=== PATIENT | female | born 1935 | race African-American/Black ===

== ENCOUNTER 2016-08-12 06:19 | Inpatient (IN) | payer MEDICARE, MEDICAID ==
[2016-08-10 13:39] VITALS: BMI 28.2
[2016-08-10 14:12] VITALS: BP_SYST 120; RESP 20
[2016-08-12] VITALS (21 sets, daily range): BP systolic 68–157; RESP 10–21; TEMP 97.2–97.8
[~2016-08-12] VITALS: Ht 157.5 cm; Wt 69.5 kg
[~2016-08-12 06:19] MED LIST: GLYCOPYRROLATE 0.2 MG/ML VIAL IV ONE; LIDOCAINE 1% BUFFERED 1 ML SYR INTRADERM PRN; MIDAZOLAM 2 MG/2 ML INJ IV ONE; NEB-ALBUTEROL 2.5 MG/3 ML INH ONE; SODIUM CHLORIDE 0.9% 1,000 ML IV SCH
[2016-08-12] MEDS ORDERED: CEFAZOLIN 2,000 MG in SODIUM CHLORIDE 0.9% 100 ML IV ONE (06:55)
[2016-08-12] MEDS ORDERED: MEPERIDINE 25 MG/ML IV PRN (08:20)
[2016-08-12] MEDS ORDERED: MORPHINE 4 MG/ML SYR IV PRN (08:20)
[2016-08-12] MEDS ORDERED: ONDANSETRON 4 MG VIAL IV PRN ×2 (08:20→09:05)
[2016-08-12] MEDS ORDERED: OXYCODONE 5 MG TAB PO PRN (08:20)
[2016-08-12] MEDS ORDERED: SALINE FLUSH 10 ML FLUSH PRN (09:05)
[2016-08-12] MEDS ORDERED: SODIUM CHLORIDE 0.9% 1,000 ML IV SCH ×2 (09:05→12:55)
[2016-08-12] MEDS ORDERED: NEOSTIGMINE 10 MG/10 ML VIAL IV ONE (10:13)
[2016-08-12] MEDS ORDERED: FENTANYL 100 MCG/2 ML AMP IV ONE (10:13)
[2016-08-12] MEDS ORDERED: PROPOFOL 20 ML VIAL IV ONE (10:13)
[2016-08-12] MEDS ORDERED: ONDANSETRON 4 MG VIAL IV PUSH ONE (10:13)
[2016-08-12] MEDS ORDERED: GLYCOPYRROLATE 0.2 MG/ML VIAL IV ONE (10:13)
[2016-08-12] MEDS ORDERED: ROCURONIUM 50 MG VIAL IV ONE (10:13)
[2016-08-12] MEDS: DILAUDID 1 MG/ML AMP IV PRN ×3 (10:59→20:16)
[2016-08-12] MEDS ORDERED: GLUCAGON 1 MG VIAL IM PRN (11:20)
[2016-08-12] MEDS ORDERED: DEXTROSE 50% SYRINGE 50 ML IV PRN (11:20)
[2016-08-12] MEDS ORDERED: BACITRACIN 50,000 UNITS INJ IRRIG ONE (14:06)
[2016-08-12] MEDS: CEFAZOLIN 2,000 MG in SODIUM CHLORIDE 0.9% 100 ML IV SCH ×2 (15:21→23:42)
[2016-08-12] MEDS: Senna/DSS 50/8.6 MG TAB PO SCH (20:14)
[2016-08-12] MEDS: SALINE FLUSH 10 ML FLUSH SCH (20:15)
[2016-08-12] MEDS: FAMOTIDINE 20 MG INJ IV SCH (20:15)
[2016-08-12] MEDS: OXYCODONE 5 MG TAB PO PRN (20:40)
[2016-08-13] VITALS (50 sets, daily range): BP systolic 82–133; RESP 7–23; TEMP 97.4–99
[2016-08-13] MEDS: OXYCODONE 5 MG TAB PO PRN ×2 (01:09→20:11)
[2016-08-13] MEDS: DILAUDID 1 MG/ML AMP IV PRN ×3 (01:10→14:26)
[2016-08-13] MEDS ORDERED: METOPROLOL 5 MG/5 ML VIAL IV ONE (05:05)
[2016-08-13] MEDS: SODIUM CHLORIDE 0.9% FLUSH BAG 500 ML IV SCH (05:06)
[2016-08-13] MEDS ORDERED: CARDIZEM 1 MG/ML DRIP 125 ML IV SCH (05:25)
[2016-08-13] MEDS ORDERED: DILTIAZEM 125 MG in DEXTROSE 125 ML IV PUSH ONE (05:25)
[2016-08-13] MEDS: CEFAZOLIN 2,000 MG in SODIUM CHLORIDE 0.9% 100 ML IV SCH (06:51)
[2016-08-13] MEDS: SALINE FLUSH 10 ML FLUSH SCH ×2 (08:12→20:02)
[2016-08-13] MEDS: FAMOTIDINE 20 MG INJ IV SCH ×2 (08:13→20:01)
[2016-08-13] MEDS: BISACODYL 10 MG SUPP RECTAL SCH ×2 (09:00→15:45)
[2016-08-13] MEDS: Carvedilol 3.125 MG TAB PO SCH ×2 (12:45→20:02)
[2016-08-13] MEDS: Senna/DSS 50/8.6 MG TAB PO SCH (20:02)
[2016-08-14] MEDS: OXYCODONE 5 MG TAB PO PRN ×3 (00:10→08:27)
[2016-08-14 00:15] VITALS: BP_SYST 112; RESP 16; TEMP 98.1
[2016-08-14] MEDS: ACETAMINOPHEN 325 MG TAB PO PRN (00:52)
[2016-08-14] MEDS: SODIUM CHLORIDE 0.9% FLUSH BAG 500 ML IV SCH (05:21)
[2016-08-14 07:54] VITALS: Ht 157.5 cm; Wt 69.5 kg
[2016-08-14] MEDS: SALINE FLUSH 10 ML FLUSH SCH ×2 (08:28→19:57)
[2016-08-14] MEDS: FAMOTIDINE 20 MG INJ IV SCH ×2 (08:28→19:56)
[2016-08-14] MEDS: Carvedilol 3.125 MG TAB PO SCH ×2 (08:29→19:57)
[2016-08-14] MEDS: BISACODYL 10 MG SUPP RECTAL SCH (08:29)
[2016-08-14] MEDS: MORPHINE 4 MG/ML SYR IV PRN ×2 (10:30→12:30)
[2016-08-14] MEDS ORDERED: MISSING DOSE XX ONE (11:10)
[2016-08-14] MEDS: DIPHENHYDRAMINE 25 MG CAP PO PRN (11:14)
[2016-08-14 11:23] VITALS: BP_SYST 108; RESP 20; TEMP 98.1
[2016-08-14] MEDS: GABAPENTIN 100 MG CAP PO SCH ×2 (12:30→19:57)
[2016-08-14 19:37] VITALS: BP_SYST 112; RESP 16; TEMP 98.4
[2016-08-14] MEDS: Senna/DSS 50/8.6 MG TAB PO SCH (19:57)
[2016-08-14 23:17] VITALS: BP_SYST 131; RESP 14; TEMP 97.5
[2016-08-15] MEDS: MORPHINE 4 MG/ML SYR IV PRN (00:07)
[2016-08-15 03:06] VITALS: BP_SYST 112; RESP 18; TEMP 98.4
[2016-08-15] MEDS: SODIUM CHLORIDE 0.9% FLUSH BAG 500 ML IV SCH (05:37)
[2016-08-15 07:19] VITALS: BP_SYST 89; RESP 16; TEMP 97.6
[2016-08-15] MEDS: FAMOTIDINE 20 MG INJ IV SCH ×2 (10:09→20:58)
[2016-08-15] MEDS: SALINE FLUSH 10 ML FLUSH SCH ×2 (10:09→20:36)
[2016-08-15] MEDS: GABAPENTIN 100 MG CAP PO SCH ×2 (10:11→20:37)
[2016-08-15] MEDS: Carvedilol 3.125 MG TAB PO SCH ×2 (10:11→20:37)
[2016-08-15] MEDS: DIPHENHYDRAMINE 25 MG CAP PO PRN (12:11)
[2016-08-15 12:16] VITALS: BP_SYST 106; RESP 18; TEMP 98.5
[2016-08-15] MEDS: MORPHINE 2 MG/ML SYR IV PRN (13:29)
[2016-08-15 15:04] VITALS: BP_SYST 107; RESP 20; TEMP 98.5
[2016-08-15 19:08] VITALS: BP_SYST 82; RESP 16; TEMP 98.4
[2016-08-15] MEDS ORDERED: MISSING DOSE XX ONE (20:35)
[2016-08-15] MEDS: Senna/DSS 50/8.6 MG TAB PO SCH (20:39)
[2016-08-15] MEDS: OXYCODONE 5 MG TAB PO PRN (20:54)
[2016-08-15 23:21] VITALS: BP_SYST 74; RESP 16; TEMP 98.2
[2016-08-16] MEDS: SODIUM CHLORIDE 0.9% FLUSH BAG 500 ML IV SCH ×2 (05:18→05:19)
[2016-08-16] MEDS: OXYCODONE 5 MG TAB PO PRN ×2 (06:57→16:46)
[2016-08-16 07:46] VITALS: BP_SYST 77; RESP 18; TEMP 98.2
[2016-08-16] MEDS: Carvedilol 3.125 MG TAB PO SCH ×2 (08:46→21:23)
[2016-08-16] MEDS: GABAPENTIN 100 MG CAP PO SCH ×2 (08:46→21:23)
[2016-08-16] MEDS: FAMOTIDINE 20 MG INJ IV SCH ×2 (08:47→21:24)
[2016-08-16] MEDS: SALINE FLUSH 10 ML FLUSH SCH ×2 (08:48→21:24)
[2016-08-16 11:06] VITALS: BP_SYST 101; RESP 16; TEMP 97.9
[2016-08-16 13:36] VITALS: BP_SYST 126; RESP 16; TEMP 98.1
[2016-08-16 14:22] VITALS: BP_SYST 103; RESP 16; TEMP 97.9
[2016-08-16 19:44] VITALS: BP_SYST 101; RESP 16; TEMP 97.8
[2016-08-16] MEDS: Senna/DSS 50/8.6 MG TAB PO SCH (21:23)
[2016-08-16 23:37] VITALS: BP_SYST 100; RESP 18; TEMP 97.4
[2016-08-17] VITALS (7 sets, daily range): BP systolic 75–108; RESP 16–20; TEMP 97.1–98.6
[2016-08-17] MEDS: OXYCODONE 5 MG TAB PO PRN ×2 (03:38→09:12)
[2016-08-17] MEDS: SODIUM CHLORIDE 0.9% FLUSH BAG 500 ML IV SCH ×2 (05:02→05:03)
[2016-08-17] MEDS: Carvedilol 3.125 MG TAB PO SCH ×2 (09:00→20:02)
[2016-08-17] MEDS: FAMOTIDINE 20 MG INJ IV SCH ×2 (09:11→20:01)
[2016-08-17] MEDS: Senna/DSS 50/8.6 MG TAB PO SCH (09:13)
[2016-08-17] MEDS: GABAPENTIN 100 MG CAP PO SCH ×2 (09:13→20:02)
[2016-08-17] MEDS: SALINE FLUSH 10 ML FLUSH SCH ×2 (09:16→20:02)
[2016-08-18] VITALS (9 sets, daily range): BP systolic 82–112; RESP 18–20; TEMP 97.5–98.3
[2016-08-18] MEDS: SODIUM CHLORIDE 0.9% FLUSH BAG 500 ML IV SCH ×4 (05:02→23:36)
[2016-08-18] MEDS: FAMOTIDINE 20 MG INJ IV SCH (08:39)
[2016-08-18] MEDS: SALINE FLUSH 10 ML FLUSH SCH ×2 (08:39→21:04)
[2016-08-18] MEDS: Carvedilol 3.125 MG TAB PO SCH ×2 (08:40→21:04)
[2016-08-18] MEDS: GABAPENTIN 100 MG CAP PO SCH ×2 (08:40→21:04)
[2016-08-18] MEDS: OXYCODONE 5 MG TAB PO PRN (08:55)
[2016-08-18] MEDS: MORPHINE 2 MG/ML SYR IV PRN (11:23)
[2016-08-18] MEDS: Senna/DSS 50/8.6 MG TAB PO SCH (21:05)
[2016-08-19] VITALS (7 sets, daily range): BP systolic 86–102; RESP 16–18; TEMP 97.4–98.7
[2016-08-19] MEDS: SALINE FLUSH 10 ML FLUSH SCH ×2 (09:26→21:21)
[2016-08-19] MEDS: GABAPENTIN 100 MG CAP PO SCH ×2 (09:27→21:48)
[2016-08-19] MEDS: Carvedilol 3.125 MG TAB PO SCH ×2 (09:27→21:48)
[2016-08-19] MEDS: OXYCODONE 5 MG TAB PO PRN ×2 (12:36→18:31)
[2016-08-19] MEDS ORDERED: MISSING DOSE XX ONE (21:25)
[2016-08-19] MEDS: Senna/DSS 50/8.6 MG TAB PO SCH (21:48)
[2016-08-19] MEDS: MORPHINE 2 MG/ML SYR IV PRN (21:49)
[2016-08-19] MEDS: SODIUM CHLORIDE 0.9% FLUSH BAG 500 ML IV SCH ×2 (23:34→23:35)
[2016-08-20] VITALS (12 sets, daily range): BP systolic 68–114; RESP 16–20; TEMP 97–98.5
[2016-08-20] MEDS ORDERED: SODIUM CHLORIDE 0.9% 500 ML IV ONE (05:05)
[2016-08-20] MEDS: GABAPENTIN 100 MG CAP PO SCH ×2 (08:18→20:04)
[2016-08-20] MEDS: Carvedilol 3.125 MG TAB PO SCH ×2 (08:18→20:04)
[2016-08-20] MEDS: SALINE FLUSH 10 ML FLUSH SCH ×2 (08:20→20:03)
[2016-08-20] MEDS: OXYCODONE 5 MG TAB PO PRN (13:34)
[2016-08-20] MEDS: Senna/DSS 50/8.6 MG TAB PO SCH (20:04)
[2016-08-21] VITALS (7 sets, daily range): BP systolic 84–109; RESP 16–20; TEMP 97.6–99
[2016-08-21] MEDS: OXYCODONE 5 MG TAB PO PRN ×3 (03:32→19:45)
[2016-08-21] MEDS: SODIUM CHLORIDE 0.9% FLUSH BAG 500 ML IV SCH ×2 (05:25→06:00)
[2016-08-21] MEDS: Carvedilol 3.125 MG TAB PO SCH ×2 (10:02→19:44)
[2016-08-21] MEDS: SALINE FLUSH 10 ML FLUSH SCH ×2 (10:02→19:46)
[2016-08-21] MEDS: GABAPENTIN 100 MG CAP PO SCH (19:45)
[2016-08-21] MEDS: Senna/DSS 50/8.6 MG TAB PO SCH (21:00)
[2016-08-22 03:25] VITALS: BP_SYST 94; RESP 18; TEMP 98.2
[2016-08-22] MEDS: OXYCODONE 5 MG TAB PO PRN ×3 (03:26→18:31)
[2016-08-22] MEDS: SODIUM CHLORIDE 0.9% FLUSH BAG 500 ML IV SCH ×2 (05:02)
[2016-08-22 07:21] VITALS: BP_SYST 93; RESP 16; TEMP 97.2
[2016-08-22] MEDS: Carvedilol 3.125 MG TAB PO SCH ×2 (09:00→20:37)
[2016-08-22] MEDS: SALINE FLUSH 10 ML FLUSH SCH ×2 (09:00→20:36)
[2016-08-22 11:12] VITALS: BP_SYST 69; RESP 18; TEMP 98.1
[2016-08-22] MEDS ORDERED: SODIUM CHLORIDE 0.9% 250 ML IV ONE (12:00)
[2016-08-22] MEDS: DEXTROSE 5% SALINE 0.9% 1,000 ML IV SCH (12:37)
[2016-08-22] MEDS ORDERED: MISSING DOSE XX ONE (15:05)
[2016-08-22] MEDS: ACETAMINOPHEN 325 MG TAB PO PRN (15:11)
[2016-08-22] MEDS: DIPHENHYDRAMINE 25 MG CAP PO PRN (15:15)
[2016-08-22 15:41] VITALS: BP_SYST 78; RESP 20; TEMP 97.8
[2016-08-22 19:26] VITALS: BP_SYST 86; RESP 18; TEMP 98.1
[2016-08-22] MEDS: GABAPENTIN 100 MG CAP PO SCH (20:37)
[2016-08-22] MEDS: Senna/DSS 50/8.6 MG TAB PO SCH (20:38)
[2016-08-22 23:23] VITALS: BP_SYST 98; RESP 18; TEMP 98.1
[2016-08-23] MEDS: DEXTROSE 5% SALINE 0.9% 1,000 ML IV SCH (04:23)
[2016-08-23 04:26] VITALS: BP_SYST 108; RESP 18; TEMP 97.5
[2016-08-23] MEDS: SODIUM CHLORIDE 0.9% FLUSH BAG 500 ML IV SCH ×2 (05:11)
[2016-08-23 06:45] VITALS: BP_SYST 98; RESP 18; TEMP 97
[2016-08-23 09:45] VITALS: BP_SYST 93; RESP 18; TEMP 98.1
[2016-08-23] MEDS: Carvedilol 3.125 MG TAB PO SCH (10:21)
[2016-08-23 10:24] VITALS: BP_SYST 112; RESP 18; TEMP 98.1
[2016-08-23] MEDS: SALINE FLUSH 10 ML FLUSH SCH (10:25)
[2016-08-23 12:49] VITALS: BP_SYST 112; RESP 18; TEMP 98.1
== END 2016-08-23 15:38 | DRG 239 ==
LOC: ENRESERVDT → ENRESERVTM → SDS 06:19 → ENPENDDIS 06:19 → EDSTATUS 07:15 → ICU 09:31 → 5THE 08-13 17:03
PROVIDERS: ADMIT Surgery Vascular Surgery; ATTEND Surgery Vascular Surgery
PROC: 0Y680ZZ Detachment at Left Femoral Region, Open Approach (ICD-10-PCS; principal; 2016-08-13)
PROC: 5A1D60Z (ICD-10-PCS; 2016-08-14)
DX: E11.51 Type 2 diabetes mellitus with diabetic peripheral angiopathy without gangrene (principal); N18.6 End stage renal disease; I13.2 Hypertensive heart and chronic kidney disease with heart failure and with stage 5 chronic kidney disease, or end stage renal disease; G20 Parkinson's disease; I48.91 Unspecified atrial fibrillation; E66.01 Morbid (severe) obesity due to excess calories; I50.32 Chronic diastolic (congestive) heart failure; I70.222 Atherosclerosis of native arteries of extremities with rest pain, left leg; E11.9 Type 2 diabetes mellitus without complications; J44.9 Chronic obstructive pulmonary disease, unspecified; Z99.2 Dependence on renal dialysis; Z79.01 Long term (current) use of anticoagulants; E78.00 Pure hypercholesterolemia, unspecified; Z82.49 Family history of ischemic heart disease and other diseases of the circulatory system; Z83.3 Family history of diabetes mellitus; Z79.82 Long term (current) use of aspirin; Z79.51 Long term (current) use of inhaled steroids; I25.10 Atherosclerotic heart disease of native coronary artery without angina pectoris; Z95.0 Presence of cardiac pacemaker; G47.30 Sleep apnea, unspecified; E78.5 Hyperlipidemia, unspecified; M25.552 Pain in left hip; M25.551 Pain in right hip
CPT/HCPCS: 71010; 80048; 82947; 85025; 85610; 86850; 86900; 86901; 87493; 88307; 88311; 93005; 94002; 94640; 94799; 99232; 99233; 99291